=== PATIENT | female | born 1990 | race Caucasian/White ===

== ENCOUNTER → 2025-04-20 13:58 | Outpatient (BNVA) | payer SELFPAY | PROVIDERS: PCP Physician Assistant Medical; Visit Provider Physician Assistant Surgical ==

== ENCOUNTER 2025-07-13 08:20 | Outpatient (AMB) | payer OTHER, SELFPAY ==
--- OUTSIDE RECORDS SUMMARY | 2025-07-13 08:45 | XMS_ITS | Encounter Summary ---
Author Organization [facility] Address [address] [place] [address] Phone Care Team Providers Care Professor Of Vegetable Science Name Role Phone Colleen Hernandez MD Primary Care Provider [phone] Encounter Details Date Type Department Care Team (Late st Contact Info) Description 06/16/2017 Conversion Encounter [facility] Pediatric[facility] - [address], [address] [place] [address] Colleen Hernandez MD [address] [place] [id number] Social History Tobacco Use Types Packs/Day Years Used Date Smoking Tobacco: Never Assessed Comments Unknown Sex and Gender Information Value Date Recorded Sex Assigned at Not on file Legal Sex Female 9:33 AM EST Gender Identity Not on file Sexual Orientation Not on file documented as of this encounter Plan of Treatment Not on file documented as of this encounter Visit Diagnoses Not on filedocumented in this encounter Care Teams Professor Of Vegetable Science Relationship Specialty Start Date End Date Colleen Hernandez MD [address] [place] [address] PCP - General 12/29/16 05/04/21 documented as of this encounter
--- OUTSIDE RECORDS SUMMARY | 2025-07-13 08:45 | XMS_ITS | Clinical Summary ---
Author Organization [facility] Address [address] [place], [place] [id number] Phone Care Team Providers Care [employer] Name Role Phone Unavailable Primary Care Provider Unavailabl e Immunizations Immunization Administration Dates Next Due DTaP 07/26/1995, 3,02/15/1992,12/06,1991 HPV, Quadrivalent 07/27/2007,03/23/2007,01/27/20 07 Hep B, ped/adol 01/03/1998,07/18/1997,08/07/1996 Hib (PRP-T) 12/04/1992, 2,1991,10/03 Influenza 07/06/2012,09/18/2010,08/07/2009 Influenza, injectable, trivalent 08/24/2012 MMR 08/07/1996,12/04/1992 Meningococcal Conj (Menactra) MCV4P 10/14/2012,0 08/07/2009 OPV 07/26/1995, 3,1991,10/03 Td (adult) (MBL), 2 Lf tetan us toxoid, PF, adsorbed 11/29/2003 Tdap 08/07/2009 Varicella 08/07/2009,07/18/1997 Family History Relation Name Status Comments Father Alive Father: well Maternal Grandfather cholest chance or lipids, hypertension Maternal Grandmother cholest chance or lipids, hypertension Mother Alive Mother: well Other 1 cholesterol or lipids, hypertension Other 2 cholesterol or lipids, hypertension Other 3 prostate cancer , substance abuse Other 4 Alive well Other 5 Alive well Other 6 Maternal Grand Father: cholesterol or lipids, hypertension Other 7 Maternal Grand Mother: cholesterol or lipids, hypertension Other 8 Paternal Grand Father: prostate cancer, substance abuse Paternal Grandfather prostat e cancer, substance abuse Social History Tobacco Use Types Packs/Day Years Used Date Smoking Tobacco: Never Assessed Comments Unknown Sex and Gender Information Value Date Recorded Sex Assigned at Not on file Legal Sex Female 9:33 AM EST Gender Identity Not on file Sexual Orientation Not on file Last Filed Vital Signs Vital Sign Reading Time Taken Comments Blood Pressure 120/67 11/20/2013 12:00 AM EST Pulse 66 11/20/2013 12:00 AM EST Temperature 37.1 C (98.7 F) 02/08/2013 12:00 AM EDT Respiratory Rate - - Oxygen Saturation 96% 12/21/2010 12:00 AM EST Inhaled Oxygen Concentration - - Weight 87 kg (191 lb 12.8 oz) 11/20/2013 12:00 A M EST Height 170.8 cm (5' 7.25 ) 11/20/2013 12:[address] Body Mass Index 29.82 11/20/2013 12:00 AM EST Plan of Treatment Health Maintenance Due Date Last Done Comments DTaP,Tdap,and Td Vaccines (7 - Td or Tdap) 08/07/2019 08/07/2009, 11/29/2003, 07/26/1995, Additional history exists Influenza Vaccines (#1) 2025 08/24/20 12, 07/06/2012, 09/18/2010, Additional history exists COVID-19 Vaccine ( season) 2025 HIB Vaccines Completed 12/04/1992, 07/1992, 1991, Additional history exists IPV Vaccines Completed 07/26/1995, 07/1993, 1991, Additional history exists MMR Vaccines Completed 08/07/1996, 12/04/1992 Hepatitis B Vaccines Completed 01/03/1998, 07/18/1997, 08/07/1996 HPV Vaccines Completed 07/27/2007, 03/08, 01/26/2007 Varicella Vaccines Completed 08/07/2009, 07/18/1997 Meningococcal Vaccine Completed 10/14/2012, 009 Hepatitis A Vaccines Aged Out No long er eligible based on patient's age to complete this topic Men B Vaccine Aged Out No longer elig ible based on patient's age to complete this topic Pneumococcal Vaccine Aged Out No long er eligible based on patient's age to complete this topic Procedures * Due to [place] state law, this organization might not be sharing sensitive test results. Procedure Name Priority Date/Time Associated Diagnosis Comments CHLAMYDIA AND GONORRHEA, AMPLIFIED Routine 02/01/2017 12:00 AM EDT from Last 3 Months or Most Recently Relevant to Health Maintenance Results * Due to [place] law, this organization might not be sharing sensitive test results. * Chlamydia and Gonorrhoea, Amplified (02/01/2017 12:00 AM EDT) CHLAMYDIA TRACHO A NEGATIVE CONVERTED LABS Comment: Negative Reason: Received -BRL Lab Interface CHLAMYDIA TRACHO A NEGATIVE CONVERTED LABS Comment: Negative Reason: Received -BRL Lab Interface N.GONORRHOEAE AMP PROBE NEGATIVE CONVERTED LABS Comment: Negative Reason: Received -BRL Lab Interface CHLAM/GC AMP PROBE SPEC T CERVIX CONVERTED LABS Comment: Negative Reason: Received -BRL Lab Interface 02/01/2017 Narrative CONVERTED LABS - 02/01/2017 12:00 AM EDT Chlamydia and GC DNA us Colleen Hernandez MD LAB MICROBIOLOGY - GENERAL ORD ERABLES Final Result CONVERTED LABS from Last 3 Months or Most Recently Relevant to Health Maintenance
--- NOTE | 2025-07-13 10:10 | MHC.OFFVISWM ---
Intake Visit Reasons: [employer] Allergies Penicillins (PENICILLINS) Allergy (Unknown, Verified 07/13/25 10:10) HIVES Medication List - Last Reconciled 07/13/25 by Juve Chan MD norethindrone-e.estradiol-iron 1 mg-20 mcg (21)/75 mg (7) (Blisovi Fe / (28)) 1 tab PO DAILY HPI HPI [employer]: Details: Start time: 10.00am, End time: 10.32am ?I spent 27 minutes speaking with the patient on the phone plus an additional 5 minutes reviewing and updating records for a total of 32 minutes HPI Comments Details: Previous weight loss efforts: Keto diet, Calorie counting Sleeps: 9am-3pm when working overnight, or 11pm-6.30am on non-working days Breakfast: none Lunch: 1pm (chicken Caesar wrap) Dinner: 5-6pm (chicken, rice, pasta, burgers, hot dogs) Snacks: 4pm (chips), 7-8pm (desserts) or overnight (chips when working) Exercise: has home stationary bike, not counting calories Beverages: Coffee (20oz/d with cream and sugar), Tea: none, Soda: diet coke occasionally, Juice: none, ETOH: none PFSH Medical History (Updated 07/13/25 @ 10:27 by Juve Chan MD) Hypertension Hyperlipidemia BMI 32.0-32.9,adult Obesity Surgical History (Updated 04/20/25 @ 14:25 by Emelia Pulliam CMA) No history of previous surgery Family History (Updated 04/20/25 @ 14:26 by Emelia Pulliam CMA) Mother Hypertension Arthritis Father Hypertension Daughter Acute eczema Daughter No problems noted. Daughter No problems noted. Social History (Updated 04/20/25 @ 14:26 by Emelia Pulliam CMA) Alcohol intake: never Patient Tobacco Use Status: Never used Tobacco Telehealth Telehealth Telehealth Platform: Telephone Location of provider rendering services: practice address Location of patient: address on file Patient Identification confirmed using: Name, : Yes Telehealth method: voice only Patient verbally consented to treatment: Yes Patient verbally consented to billing insurance company: Yes Patient informed of any privacy concerns related to visit: Yes Minutes spent on Phone/Video with Pt.: 32 Assessment & Plan Assessment & Plan (1) Obesity: Code(s): E66.9 - Obesity, unspecified Category: Medical Qualifiers: Obesity type: due to excess calories Obesity classification: adult class 1 (BMI 30 - 34.9) Serious obesity comorbidity presence: without serious comorbidity Body mass index: BMI 32.0-32.9 Qualified Code(s): E66.811 - Obesity, class 1; E66.09 - Other obesity due to excess calories; Z68.32 - Body mass index [BMI] 32.0-32.9, adult Plan: We discussed in detail the available therapeutic options: 1) our lifestyle intervention program that has an average weight loss of 10% in 3 months.?Some patients continue it for longer and have lost over 50lbs but this is not common. Our lifestyle program can be provided by me or by using our software herbert, the [employer] herbert. I will provide you with a link to use the herbert if you choose to do so. We use protein shakes and protein bars to replace some of the meals of the day and cover your appetite better. We will decide together the exact combination. 2) Weight loss medications: these can be used in conjunction with our lifestyle program or you may choose to use them without following a lifestyle program from my program but your own. As we discussed, your insurance requires you to do the lifestyle program for 3 months before they approve the medications. The medication I use more often is called Zepbound and is one shot per week. My office will do the authorizations and we will train you how to use it properly. We also discussed that you can self pay for the first 3 months and the cost is $249 for the first month and $499 for any other month thereafter. These payments go to the drug company directly and not to us.
== END 2025-07-13 10:32 | disposition home or self-care (01) ==
LOC: HO.HBS 08:20
PROVIDERS: PCP Physician Assistant Medical; Visit Provider Surgery
DX: E66.811 Obesity, class 1 (principal); E66.09 Other obesity due to excess calories; Z68.32 Body mass index [BMI] 32.0-32.9, adult
CPT/HCPCS: 99203

== ENCOUNTER → 2025-07-13 08:20 | Outpatient (BNVA) | payer OTHER, SELFPAY | PROVIDERS: PCP Physician Assistant Medical; Visit Provider Surgery | DX: E66.811 Obesity, class 1 (principal); E66.9 Obesity, unspecified; Z68.32 Body mass index [BMI] 32.0-32.9, adult; Z13.89 Encounter for screening for other disorder ==